=== PATIENT | female | born 1990 | race Caucasian/White ===

== ENCOUNTER → 2019-05-20 | Outpatient (CLI) | payer BC ==
[2019-05-23 11:18] LABS: Cashew IgE 0.57 kU/L (<0.10); Cashew IgE Class CLASS 1; Pistachio IgE Class CLASS 2
== END | disposition home or self-care (01) ==
LOC: LABWHC1 16:54
PROVIDERS: ATTEND Pediatrics
DX: T78.05XD Anaphylactic reaction due to tree nuts and seeds, subsequent encounter (principal)
CPT/HCPCS: 36415; 82785; 86003

== ENCOUNTER 2020-03-25 04:53 | Emergency (ER) | payer OTHER, BC ==
[2020-03-25 05:08] VITALS: BP 125/86; PULSE 98; RESP 18; TEMP 98.4
--- NOTE | 2020-03-25 05:12 | ED ---
Recheck HPI - General Chief Complaint: Needlestick/Exposure Stated Complaint: Blood Exposure - [facility] Time Seen by Provider: 03/25/20 04:55 Source: patient, RN notes reviewed, old records reviewed Mode of arrival: ambulatory Limitations: no limitations - History of Present Illness Initial Comments: This is a 30-year-old female DF for evaluation she presented today for evaluation of body fluid exposure, while doing IV patient flashback possible blood and water squirt into her eye. No history of communicable disease per the patient. Patient has no injuries MD Complaint: other (Check for blood exposure) -: minutes(s) Returns Today for: other (Checking post exposure prophylaxis) Symptoms Since Prior Visit: no new symptoms Associated Symptoms: none Treatments Prior to Arrival: other (None) - Related Data Allergies Allergy/AdvReac Type Severity Reaction Status Date / Time Penicillins Allergy Rash/Hives Verified 03/25/20 05:05 Review of Systems ROS Statement: Those systems with pertinent positive or pertinent negative responses have been documented in the HPI. ROS Other: All systems not noted in ROS Statement are negative. Past Medical History Past Medical History: No Reported History History of Any Multi-Drug Resistant Organisms: MRSA Date of last positivie culture/infection: 2009 MDRO Source:: rib cage Past Surgical History: Orthopedic Surgery, Tonsillectomy Past Psychological History: No Psychological Hx Reported Smoking Status: Never smoker Past Alcohol Use History: Occasional Past Drug Use History: None Reported General Exam Limitations: no limitations General appearance: alert, in no apparent distress Head exam: Present: atraumatic, normocephalic, normal inspection Eye exam: Present: normal appearance, PERRL, EOMI. Absent: scleral icterus, conjunctival injection, periorbital swelling ENT exam: Present: normal exam, mucous membranes moist Neck exam: Present: normal inspection. Absent: tenderness, meningismus, lymphadenopathy Respiratory exam: Present: normal lung sounds bilaterally. Absent: respiratory distress, wheezes, rales, rhonchi, stridor Cardiovascular Exam: Present: regular rate, normal rhythm, normal heart sounds. Absent: systolic murmur, diastolic murmur, rubs, gallop, clicks GI/Abdominal exam: Present: soft, normal bowel sounds. Absent: distended, tenderness, guarding, rebound, rigid Extremities exam: Present: normal inspection, full ROM, normal capillary refill. Absent: tenderness, pedal edema, joint swelling, calf tenderness Back exam: Present: normal inspection Neurological exam: Present: alert, oriented X3, CN II-XII intact Psychiatric exam: Present: normal affect, normal mood Skin exam: Present: warm, dry, intact, normal color. Absent: rash Course Vital Signs 03/25/20 04:57 Temperature 98.4 F Pulse Rate 98 Respiratory 18 Rate Blood Pressure 125/86 O2 Sat by Pulse 99 Oximetry - Reevaluation(s) Reevaluation #1: Medical records reviewed Spoke patient length regarding low risk of transmission, advice again postexposure prophylaxis, patient agrees Medical Decision Making - Medical Decision Making 30 female with body fluid exposure, patient refusing postexposure prophylaxis currently will await testing Disposition Clinical Impression: Needlestick injury accident Disposition: HOME SELF-CARE Condition: Good Instructions (If sedation given, give patient instructions): Postexposure Prophylaxis (ED) Is patient prescribed a controlled substance at d/c from ED?: No Referrals: Donato Childers MD [Primary Care Provider] - 1-2 days
== END 2020-03-25 05:40 | disposition home or self-care (01) ==
LOC: EC 04:53
DX: Z77.21 Contact with and (suspected) exposure to potentially hazardous body fluids (principal); Z88.0 Allergy status to penicillin; Z86.14 Personal history of Methicillin resistant Staphylococcus aureus infection; W46.0XXA Contact with hypodermic needle, initial encounter; Y92.69 Other specified industrial and construction area as the place of occurrence of the external cause; Y99.0 Civilian activity done for income or pay
CPT/HCPCS: 99283

== ENCOUNTER → 2020-07-19 | Outpatient (CLI) | payer BC | END | disposition home or self-care (01) | LOC: LABWHC1 13:22 | PROVIDERS: ATTEND Family Medicine | DX: Z53.9 Procedure and treatment not carried out, unspecified reason (principal) ==

== ENCOUNTER → 2020-07-23 | Outpatient (CLI) | payer BC ==
[2020-07-23 10:36] LABS: Basophils # (A) 0.03 X 10*3/uL (0.00-0.10); Basophils % (A) 0.6 %; Eosinophils # (A) 0.08 X 10*3/uL (0.04-0.35); Eosinophils % (A) 1.7 %; HCT 43.5 % (37.2-46.3); HGB 14.4 g/dL (12.0-15.0); Lymphocytes # (A) 2.01 X 10*3/uL (0.90-5.00); Lymphocytes % (A) 43.2 %; MCH 31.1 pg (27.0-32.0); MCHC 33.1 g/dL (32.0-37.0); Mean Platelet Volume 10.6 fL (9.5-12.2); Monocytes # (A) 0.28 X 10*3/uL (0.20-1.00); Neutrophils # (A) 2.24 X 10*3/uL (1.80-7.70); Neutrophils % (A) 48.3 %; Platelet Count 308 X 10*3/uL (140-440); RBC 4.63 X 10*6/uL (4.10-5.20); RDW 12.8 % (11.5-14.5); WBC 4.65 X 10*3/uL (4.50-10.00)
[2020-07-23 11:18] LABS: African American GFR (CKD) 115.5 (60.0-200.0); Albumin 4.7 g/dL (3.80-4.90); Albumin/Globulin Ratio 2.47 (1.60-3.17); Anion Gap 8.3 mmol/L (4.00-12.00); BUN/Creat Ratio 18.75 Ratio (12.00-20.00); Calcium 9.9 mg/dL (8.7-10.3); Carbon Dioxide 27.7 mmol/L (21.6-31.8); Chol/HDL Ratio 5.41; Globulin 1.9 g/dL (1.6-3.3); LDL Cholesterol,Calculated 178.4 mg/dL (0.0-131.0); Non-African American GFR(CKD) 99.6 (60.0-200.0); Potassium 4.5 mmol/L (3.5-5.5); Total Bilirubin 0.5 mg/dL (0.2-1.2); Total Protein 6.6 g/dL (6.2-8.2); VLDL Calculation 37.6 mg/dL (5.00-40.00)
[2020-07-23 14:09] LABS: Hemoglobin A1C 4.6 % (4.0-6.0)
== END | disposition home or self-care (01) ==
LOC: LABWHC1 07:57
PROVIDERS: ATTEND Family Medicine
DX: Z00.00 Encounter for general adult medical examination without abnormal findings (principal); Z11.1 Encounter for screening for respiratory tuberculosis; Z76.89 Persons encountering health services in other specified circumstances
CPT/HCPCS: 36415; 80053; 80061; 83036; 84443; 85025; 86480

== ENCOUNTER → 2020-08-03 | Outpatient (CLI) | payer BC ==
[2020-08-03 15:37] LABS: Mumps Virus IgG Ab Interp POSITIVE (NEGATIVE); Mumps Virus IgG Antibody 1.2 AI
[2020-08-03 17:02] LABS: Chol/HDL Ratio 4.75; LDL Cholesterol,Calculated 160.4 mg/dL (0.0-131.0); VLDL Calculation 19.6 mg/dL (5.00-40.00)
[2020-08-03 22:02] LABS: Hepatitis B Surface AB- Quant >1000.0 mIU/mL; Hepatitis B Surface Antibody Reactive (Non-Reactive)
== END | disposition home or self-care (01) ==
LOC: LABWHC1 07:55
PROVIDERS: ATTEND Nurse Practitioner Adult Health
DX: E78.5 Hyperlipidemia, unspecified (principal); Z76.89 Persons encountering health services in other specified circumstances
CPT/HCPCS: 36415; 80061; 86706; 86735; 86762; 86765; 86787